=== PATIENT | female | born 1960 | race Hispanic/Latino ===

== ENCOUNTER 2017-12-15 16:34 | Inpatient (IN) | payer OTHER ==
[~2017-12-15] VITALS: Ht 152.4 cm; Wt 83.0 kg
[2017-12-15 17:07] LABS: BASOPHILS % (AUTO) 0.4 % (0.0-5.0); EOSINOPHILS % (AUTO) 0.6 % (0.0-8.0); HEMATOCRIT 42.2 % (36-48); LYMPHOCYTES % (AUTO) 37.9 % (21.0-51.0); MEAN CORPUSCULAR HEMOGLOBIN 30.7 pg (27.0-33.0); MEAN CORPUSCULAR HGB CONC 34.8 g/dL (32.0-36.0); MEAN CORPUSCULAR VOLUME 88.2 fL (79-99); MONOCYTES % (AUTO) 4.6 % (3.0-13.0); NEUTROPHILS % (AUTO) 56.5 % (40.0-77.0); PLATELET COUNT (AUTO) 363 K/uL (130-400); RED BLOOD CELL COUNT(AUTO) 4.79 MIL/uL (4.00-5.50); RED CELL DISTRIBUTION WIDTH 12.9 % (11.0-15.5); WHITE BLOOD COUNT (AUTO) 10.7 K/uL (4.8-10.8)
[2017-12-15 17:26] LABS: INR 0.95 (0.85-1.15)
[2017-12-15 17:28] LABS: CREATININE 0.9 mg/dL (0.5-1.5); POTASSIUM 3.4 mmol/L (3.5-5.1)
[2017-12-15 17:43] LABS: BILIRUBIN,TOTAL 0.3 mg/dL (0.2-1.0); CREATINE KINASE MB 0.8 ng/mL (0.5-3.6); TOTAL PROTEIN, SERUM 8.7 g/dL (6.0-8.3)
[2017-12-15 20:05] LABS: APPEARANCE,URINE Clear (CLEAR); BILIRUBIN,URINE Negative (NEGATIVE); COLOR,URINE Yellow (YELLOW); GLUCOSE, URINE (UA) Negative (NEGATIVE); KETONES,URINE Negative (NEGATIVE); LEUKOCYTE ESTERASE ,URINE Moderate (NEGATIVE); NITRATE,URINE Negative (NEGATIVE); OCCULT BLOOD,URINE Trace (NEGATIVE); PROTEIN,URINE Negative (NEGATIVE); UROBILINOGEN,URINE 0.2 mg/dL (0.2-1.0)
[2017-12-15 20:17] LABS: BACTERIA,URINE None Seen /HPF (None Seen); RBC,URINE 0-1 /HPF (0-1); RENAL EPITHELIAL CELLS,URINE Few /HPF (None Seen); TRANSITIONAL EPI CELLS,URINE Few /HPF (None Seen)
[2017-12-15] MEDS ORDERED: POTASSIUM CHLORIDE 20 MEQ ERTAB PO ONE (21:00)
[2017-12-15] MEDS ORDERED: POTASSIUM CHLORIDE 20MEQ/100ML 100 ML IV PRN (22:00)
[2017-12-15] MEDS ORDERED: POTASSIUM CHLORIDE 20 MEQ ERTAB PO PRN (22:00)
[2017-12-15] MEDS ORDERED: LORAZEPAM 0.5 MG TABLET PO PRN (22:00)
[2017-12-15] MEDS ORDERED: POTASSIUM CHLORIDE 10% ELIXIR 20 MEQ/15 ML UDCUP PO PRN (22:00)
[2017-12-15] MEDS ORDERED: LIDOCAINE HCL-MPF 1% 2ML VIAL IVP PRN (22:00)
[2017-12-15] MEDS ORDERED: HYDRALAZINE HCL 20 MG/ML VIAL IV PRN (22:30)
[2017-12-16 06:54] LABS: HEMOGLOBIN A1C 7.5 % (4.0-6.0)
[2017-12-16 07:12] LABS: THYROID STIMULATING HORMONE 1.46 uIU/mL (0.36-3.74)
[2017-12-16] MEDS: INSULIN HUMULIN R 100 UNIT/ML 3ML SQ SCH ×4 (07:30→21:00)
[2017-12-16 08:33] VITALS: BP 96/49
[2017-12-16] MEDS: ENOXAPARIN SODIUM 40 MG/0.4 ML SYRINGE SQ SCH (09:00)
[2017-12-16] MEDS ORDERED: LORAZEPAM 1 MG TABLET ONE (09:21)
[2017-12-16] MEDS ORDERED: INSULIN HUMULIN R 100 UNIT/ML 3ML ONE (09:24)
[2017-12-16] MEDS ORDERED: POTASSIUM CHLORIDE 20 MEQ ERTAB PO ONE ×2 (09:26→12:01)
[2017-12-16 15:50] VITALS: BP 108/71
[2017-12-16] MEDS ORDERED: METF500T6 PO (15:58)
[2017-12-16] MEDS ORDERED: ATOR10 PO (15:58)
[2017-12-16] MEDS ORDERED: GABA-529 PO (15:58)
[2017-12-16 19:50] VITALS: BP 104/72
[2017-12-16 23:33] VITALS: BP 111/68
[2017-12-17 03:56] VITALS: BP 109/67
[2017-12-17] MEDS: INSULIN HUMULIN R 100 UNIT/ML 3ML SQ SCH ×3 (06:06→16:27)
[2017-12-17 07:00] VITALS: BP 103/51
[2017-12-17] MEDS: ENOXAPARIN SODIUM 40 MG/0.4 ML SYRINGE SQ SCH (08:04)
[2017-12-17] MEDS: REGADENOSON 0.4 MG/5 ML PF SYG IVP SCH ×2 (11:15→12:46)
[2017-12-17 12:45] VITALS: BP 104/63
[2017-12-17 16:00] VITALS: BP 116/64
== END 2017-12-17 18:00 | disposition home or self-care (01) | DRG 141 ==
LOC: EDH 16:34 → OBSVTOIN 16:35 → EDHIP 16:35 → 2DH 12-16 16:02
PROVIDERS: ADMIT Internal Medicine Nephrology; ATTEND Internal Medicine Nephrology
DX: J45.909 Unspecified asthma, uncomplicated (principal); I11.9 Hypertensive heart disease without heart failure; E11.9 Type 2 diabetes mellitus without complications; R07.9 Chest pain, unspecified; E78.5 Hyperlipidemia, unspecified; E87.6 Hypokalemia; I51.7 Cardiomegaly; Z79.84 Long term (current) use of oral hypoglycemic drugs; Z90.49 Acquired absence of other specified parts of digestive tract; R55 Syncope and collapse
CPT/HCPCS: 36415; 71045; 78452; 80053; 80061; 81001; 82550; 82553; 82948; 83036; 83874; 84443; 84484; 85025; 85610; 85730; 93005; 93017; 93306; 96374; A9500; J1650; J1815; J2785